=== PATIENT | male | born 1985 ===

== ENCOUNTER 2019-07-20 16:54 | Outpatient (REF) | payer MEDICAID, SELFPAY ==
[2019-07-22 12:28] LABS: COVID-19 RT-PCR UVMMC Result Negative (Negative)
== END 2019-07-20 17:14 ==
LOC: NCHCN 16:54
PROVIDERS: PCP Specialist/Technologist Athletic Trainer; Visit Provider Physician Assistant
DX: Z20.828 Contact with and (suspected) exposure to other viral communicable diseases (principal)
CPT/HCPCS: U0003